=== PATIENT | female | born 1960 | race Caucasian/White ===

== ENCOUNTER 2020-11-22 13:44 | Inpatient (IN) | payer SELFPAY ==
[~2020-11-22] VITALS: Ht 157.5 cm; Wt 90.7 kg
[2020-11-22] MEDS ORDERED: ONDANSETRON HCL INJ 2MG/ML 2ML 2 MG/ML VIAL IV STA (14:05)
[2020-11-22] MEDS ORDERED: SODIUM CHLORIDE 0.9% 1000ML 1,000 ML IV STA (14:05)
[2020-11-22 14:20] LABS: EOSINOPHILS % 0.2 % (0.0-6.0); HEMATOCRIT 41.4 % (34.2-44.1); HEMOGLOBIN 13.5 g/dL (12.0-16.0); LYMPHOCYTES # (AUTO) 0.9 (1.0-3.2); LYMPHOCYTES % 19.4 % (18.0-39.1); MEAN CORPUSCULAR HEMOGLOBIN 28.6 pg (28-32); MEAN CORPUSCULAR HGB CONC 32.6 g/dL (31-35); MEAN CORPUSCULAR VOLUME 87.7 fL (81-99); MONOCYTES # (AUTO) 0.4 (0.2-0.8); MONOCYTES % 7.8 % (4.4-11.3); NEUTROPHILS # (AUTO) 3.2 (2.1-6.9); NEUTROPHILS % 72.2 % (38.7-80.0); PLATELET COUNT 185 x10e3/uL (140-360); RED BLOOD COUNT 4.72 x10e6/uL (3.6-5.1); RED CELL DISTRIBUTION WIDTH 13.3 % (11.7-14.4)
[2020-11-22 14:41] LABS: ALBUMIN 3.8 g/dL (3.5-5.0); ANION GAP 16.4 mmol/L (8-16); CALCIUM 8.8 mg/dL (8.4-10.2); CREATININE, SERUM 0.7 mg/dL (0.57-1.11); MAGNESIUM 1.9 MG/DL (1.3-2.1); POTASSIUM 3.4 mmol/L (3.5-5.1)
[2020-11-22] MEDS: DEXAMETHASONE SOD PHOS 10 MG/1 ML VIAL IV SCH (14:46)
[2020-11-22] MEDS: CEFTRIAXONE 1 GM in SODIUM CHLORIDE 0.9% 50ML 50 ML IV SCH (14:46)
[2020-11-22 14:49] LABS: CREATINE KINASE MB 0.7 ng/mL (0-5.0)
[2020-11-22] MEDS ORDERED: REMDESIVIR 200MG 200 MG IV SCH (15:00)
[2020-11-22] MEDS ORDERED: ACETAMINOPHEN 325 MG TAB PO ONE (15:00)
[2020-11-22 19:34] LABS: LYMPHOCYTES % (MANUAL) 18 % (19-48); MONOCYTES % (MANUAL) 9 % (3.4-9.0); NEUTROPHILS % (MANUAL) 72 % (40-74)
[2020-11-22 19:35] LABS: PLATELET MORPHOLOGY COMMENT NORMAL
[2020-11-22 19:36] LABS: PLATELET ESTIMATE ADEQUATE; RBC MORPHOLOGY COMMENT NORMAL
[2020-11-22 20:54] VITALS: BP 95/46
[2020-11-22] MEDS ORDERED: ZOLPIDEM TARTRATE 5 MG TAB PO ONE (22:00)
[2020-11-22] MEDS: ALBUTEROL SULFATE HFA 8GM INHALATION AEROSOL INH SCH (23:30)
[2020-11-23] VITALS (9 sets, daily range): BP systolic 97–138; BP diastolic 50–84
[2020-11-23 06:51] LABS: BASOPHILS % 0.2 % (0.0-1.0); HEMATOCRIT 38.9 % (34.2-44.1); HEMOGLOBIN 12.8 g/dL (12.0-16.0); LYMPHOCYTES # (AUTO) 0.7 (1.0-3.2); LYMPHOCYTES % 17.2 % (18.0-39.1); MEAN CORPUSCULAR HEMOGLOBIN 28.8 pg (28-32); MEAN CORPUSCULAR HGB CONC 32.9 g/dL (31-35); MEAN CORPUSCULAR VOLUME 87.6 fL (81-99); MONOCYTES # (AUTO) 0.5 (0.2-0.8); MONOCYTES % 11.2 % (4.4-11.3); NEUTROPHILS % 70.7 % (38.7-80.0); PLATELET COUNT 216 x10e3/uL (140-360); RED BLOOD COUNT 4.44 x10e6/uL (3.6-5.1); RED CELL DISTRIBUTION WIDTH 13.3 % (11.7-14.4)
[2020-11-23 07:13] LABS: ALBUMIN 3.5 g/dL (3.5-5.0); ALBUMIN/GLOBULIN RATIO 0.9 (0.8-2.0); ANION GAP 17.7 mmol/L (8-16); CALCIUM 8.4 mg/dL (8.4-10.2); CREATININE, SERUM 0.64 mg/dL (0.57-1.11); POTASSIUM 3.7 mmol/L (3.5-5.1)
[2020-11-23 07:25] LABS: CREATINE KINASE MB 1.7 ng/mL (0-5.0)
[2020-11-23 08:18] LABS: BAND NEUTROPHILS % (MANUAL) 1 %; LYMPHOCYTES % (MANUAL) 15 % (19-48); MONOCYTES % (MANUAL) 10 % (3.4-9.0); NEUTROPHILS % (MANUAL) 71 % (40-74)
[2020-11-23 08:19] LABS: PLATELET ESTIMATE ADEQUATE; PLATELET MORPHOLOGY COMMENT NORMAL; RBC MORPHOLOGY COMMENT NORMAL
[2020-11-23] MEDS: DEXAMETHASONE SOD PHOS 10 MG/1 ML VIAL IV SCH (09:04)
[2020-11-23] MEDS: BENZONATATE 100 MG CAP PO SCH ×3 (09:04→20:01)
[2020-11-23] MEDS ORDERED: NAPROSYN500 MG PO (10:03)
[2020-11-23] MEDS ORDERED: SINGULAIR10 MG PO (10:03)
[2020-11-23] MEDS ORDERED: PRAVASTATIN SOD40 MG PO (10:03)
[2020-11-23] MEDS ORDERED: OLMESARTAN PO (10:03)
[2020-11-23] MEDS ORDERED: CYMBALTA30 MG PO (10:03)
[2020-11-23] MEDS: BUSPIRONE HCL 5 MG TAB PO SCH ×3 (12:30→17:05)
[2020-11-23] MEDS ORDERED: ACETAMINOPHEN 325 MG TAB PO PRN (13:15)
[2020-11-23] MEDS ORDERED: ZOLPIDEM TARTRATE 5 MG TAB PO PRN (13:15)
[2020-11-23] MEDS ORDERED: DOCUSATE SODIUM 100 MG CAP PO PRN (13:15)
[2020-11-23 14:11] LABS: CHOL/HDL RATIO 5.9 (3.0-3.6)
[2020-11-23 14:34] LABS: CREATINE KINASE 94 IU/L (29-168)
[2020-11-23] MEDS ORDERED: SODIUM CHLORIDE 0.9% 250ML 250 ML ONE (16:43)
[2020-11-23] MEDS ORDERED: ENOXAPARIN INJ 80 MG/0.8 ML SYR SC SCH (17:00)
[2020-11-23] MEDS: REMDESIVIR 100MG 100 MG IV SCH (17:00)
[2020-11-23] MEDS: CEFTRIAXONE 1 GM in SODIUM CHLORIDE 0.9% 50ML 50 ML IV SCH (17:00)
[2020-11-23] MEDS: ASCORBIC ACID 500 MG TAB PO SCH (17:01)
[2020-11-23] MEDS: GABAPENTIN 100 MG CAP PO SCH (17:01)
[2020-11-23] MEDS: BUDESONIDE/FORMOTEROL 160/4.5MCG INHALER INH SCH (20:06)
[2020-11-23] MEDS ORDERED: ZOLPIDEM TARTRATE 5 MG TAB PO ONE (21:00)
[2020-11-24] VITALS (8 sets, daily range): BP systolic 99–121; BP diastolic 52–67
[2020-11-24] MEDS: BENZONATATE 100 MG CAP PO SCH ×3 (09:39→20:15)
[2020-11-24] MEDS: MONTELUKAST SODIUM 10 MG TAB PO SCH (09:39)
[2020-11-24] MEDS: BUSPIRONE HCL 5 MG TAB PO SCH ×2 (09:39→17:00)
[2020-11-24] MEDS: ZINC SULFATE 50 MG CAP PO SCH (09:39)
[2020-11-24] MEDS: ENOXAPARIN 30 MG/0.3 ML SYR SC SCH ×2 (09:39→20:15)
[2020-11-24] MEDS: DEXAMETHASONE SOD PHOS 10 MG/1 ML VIAL IV SCH (09:39)
[2020-11-24] MEDS: GABAPENTIN 100 MG CAP PO SCH ×2 (09:39→17:00)
[2020-11-24] MEDS: ASCORBIC ACID 500 MG TAB PO SCH ×2 (09:39→17:00)
[2020-11-24] MEDS: BUDESONIDE/FORMOTEROL 160/4.5MCG INHALER INH SCH (11:00)
[2020-11-24] MEDS: ALBUTEROL SULFATE HFA 8GM INHALATION AEROSOL INH SCH (13:00)
[2020-11-24] MEDS: CEFTRIAXONE 1 GM in SODIUM CHLORIDE 0.9% 50ML 50 ML IV SCH (15:00)
[2020-11-24] MEDS: REMDESIVIR 100MG 100 MG IV SCH (15:45)
[2020-11-25 01:32] VITALS: BP 103/59
[2020-11-25 05:03] VITALS: BP 87/50
[2020-11-25] MEDS: ALBUTEROL SULFATE HFA 8GM INHALATION AEROSOL INH SCH ×2 (07:00→12:47)
[2020-11-25] MEDS: BUDESONIDE/FORMOTEROL 160/4.5MCG INHALER INH SCH (07:30)
[2020-11-25 08:59] VITALS: BP 99/58
[2020-11-25] MEDS: BUSPIRONE HCL 5 MG TAB PO SCH (09:07)
[2020-11-25] MEDS: DEXAMETHASONE SOD PHOS 10 MG/1 ML VIAL IV SCH (09:07)
[2020-11-25] MEDS: GABAPENTIN 100 MG CAP PO SCH (09:07)
[2020-11-25] MEDS: ENOXAPARIN 30 MG/0.3 ML SYR SC SCH (09:08)
[2020-11-25] MEDS: ASCORBIC ACID 500 MG TAB PO SCH (09:08)
[2020-11-25] MEDS: BENZONATATE 100 MG CAP PO SCH (09:08)
[2020-11-25] MEDS: MONTELUKAST SODIUM 10 MG TAB PO SCH (09:08)
[2020-11-25] MEDS: ZINC SULFATE 50 MG CAP PO SCH (09:08)
[2020-11-25 09:45] VITALS: BP 99/58
[2020-11-25] MEDS ORDERED: ROBITUSSIN COU118 M4 PO (11:01)
[2020-11-25] MEDS ORDERED: ZITHROMAX500 MG PO (11:01)
[2020-11-25] MEDS ORDERED: ASCORBIC ACID500 MG PO (11:01)
[2020-11-25] MEDS ORDERED: LORATADINE10 MG PO (11:01)
[2020-11-25] MEDS ORDERED: SYMBICORT 16010.2 GM INH (11:01)
[2020-11-25] MEDS ORDERED: TESSALON PERLE100 MG PO (11:01)
[2020-11-25] MEDS ORDERED: PREDNISONE20 MG PO (11:01)
[2020-11-25 11:58] VITALS: BP 113/81
[2020-11-25] MEDS ORDERED: AZITHROMYCIN 250 MG TAB PO SCH (15:30)
== END 2020-11-25 16:05 | disposition home or self-care (01) | DRG 871 ==
LOC: ER 14:05 → ERHOLD 19:28 → MED/SURG3 20:57
PROVIDERS: ADMIT Internal Medicine; ATTEND Internal Medicine
PROC: 02HV33Z Insertion of Infusion Device into Superior Vena Cava, Percutaneous Approach (ICD-10-PCS; principal; 2020-11-22)
PROC: B548ZZA Ultrasonography of Superior Vena Cava, Guidance (ICD-10-PCS; 2020-11-22)
PROC: XW043E5 Introduction of Remdesivir Anti-infective into Central Vein, Percutaneous Approach, New Technology Group 5 (ICD-10-PCS; 2020-11-22)
PROC: 3E0433Z Introduction of Anti-inflammatory into Central Vein, Percutaneous Approach (ICD-10-PCS; 2020-11-22)
DX: A41.89 Other specified sepsis (principal); U07.1 COVID-19; J12.82 Pneumonia due to coronavirus disease 2019; J96.01 Acute respiratory failure with hypoxia; E66.9 Obesity, unspecified; Z68.36 Body mass index [BMI] 36.0-36.9, adult; Z72.0 Tobacco use; Z90.49 Acquired absence of other specified parts of digestive tract; I10 Essential (primary) hypertension; E78.5 Hyperlipidemia, unspecified; J45.909 Unspecified asthma, uncomplicated; R53.81 Other malaise
CPT/HCPCS: 36415; 36569; 71045; 80053; 80061; 82550; 82553; 83036; 83735; 83880; 84484; 85025; 86140; 87040; 93005; 99284; J0456; J0696; J1100; J1650; J2405; J7030; J7050; U0002